=== PATIENT | female | born 1950 | race Caucasian/White ===

== ENCOUNTER 2017-02-09 09:46 | Emergency (ER) | payer MEDICARE, MEDICAID ==
[~2017-02-09] VITALS: Ht 170.2 cm; Wt 75.0 kg
[~2017-02-09 09:46] MED LIST: ACET325 PO; AMLO5TAB96 PO; CARB0.5D16 EACH EYE; CLIN1CAP6 PO; CLON.1 PO; HYDR-2768 PO; IRBE150T51 PO; LORA-474 PO; PARO40TA PO; PERC10TA27 PO; TRAZ100 PO; VITA100018 PO; XARE10TA PO
[2017-02-09 10:05] VITALS: BP 149/91; PULSE 85; RESP 14; TEMP 98; O2SAT 95
[2017-02-09] MEDS ORDERED: SODIUM CHLORIDE 0.9% FLUSH 10 ML FLUSH IV FLUSH PRN (10:30)
[2017-02-09 10:41] VITALS: BP 149/91; PULSE 85; RESP 14; TEMP 98; O2SAT 95
[2017-02-09 10:42] LABS: AUTOMATED NEUTROPHIL # 7.6 TH/MM3 (1.8-7.7); BASOPHIL # 0.1 TH/MM3 (0-0.2); BASOPHIL % 0.7 % (0.0-2.0); EOSINOPHIL # 0.1 TH/MM3 (0-0.4); EOSINOPHIL % 1.2 % (0.0-4.0); HEMO FLAGS DIFF FINAL; LYMPH % 22.5 % (9.0-44.0); LYMPHOCYTE # 2.6 TH/MM3 (1.0-4.8); MEAN CELL VOLUME 94.7 FL (80.0-100.0); MEAN CORPUSCULAR HEMOGLOBIN 32.1 PG (27.0-34.0); MEAN CORPUSCULAR HGB CONC 33.9 % (32.0-36.0); MONO % 11.1 % (0.0-8.0); NEUT % 64.5 % (16.0-70.0); PLATELET COUNT 366 TH/MM3 (150-450); RED BLOOD COUNT 4.32 MIL/MM3 (4.00-5.30); RED CELL DISTRIBUTION WIDTH 12.8 % (11.6-17.2); WHITE BLOOD COUNT 11.8 TH/MM3 (4.0-11.0)
[2017-02-09 10:48] LABS: BLOOD, URINE NEG (NEG); GLUCOSE,URINE NEG (NEG); HYALINE CAST, URINE 10 /lpf (RARE); KETONE, URINE NEG (NEG); MUCUS URINE FEW /lpf (OCC); NITRITE,URINE NEG (NEG); SQUAMOUS EPITHELIAL CELL URINE 1 /hpf (0-5); URINE COLOR YELLOW (YELLW/STRAW)
[2017-02-09 10:51] LABS: APTT (PATIENT) 23.6 SEC (24.3-30.1); PROTHROMBIN TIME - PATIENT 10.1 SEC (9.8-11.6)
[2017-02-09 10:56] LABS: COMMENT (UR) CATH-CULT NOT IND; CULTURE IF INDICATED CATH CULTURE NOT IND
[2017-02-09 11:06] LABS: ALT (GPT) 28 U/L (10-53); ANION GAP 7 MEQ/L (5-15); AST (GOT) 45 U/L (15-37); BICARBONATE 25.3 MEQ/L (21.0-32.0); BLOOD UREA NITROGEN 20 MG/DL (7-18); CHLORIDE 107 MEQ/L (98-107); GLOMERULAR FILTRATION RATE 46 ML/MIN (>89); POTASSIUM 3.8 MEQ/L (3.5-5.1); SODIUM (NA) 139 MEQ/L (136-145)
[2017-02-09 11:07] LABS: ALCOHOL LESS THAN 3 MG/DL (0-5)
[2017-02-09 11:09] LABS: ALKALINE PHOSPHATASE 98 U/L (45-117); TOTAL BILIRUBIN ADULT 0.2 MG/DL (0.2-1.0)
--- NOTE | 2017-02-09 11:16 | RADRPT ---
EXAM DATE/TIME: 02/09/2017 10:55 [facility] COMPARISON: No previous studies available for comparison. INDICATIONS : Right knee pain after falling this morning. MEDICAL HISTORY : Hypertension. Osteoporosis. SURGICAL HISTORY : Appendectomy. Splenectomy. ENCOUNTER: Initial ACUITY: 1 day PAIN SCORE: 9/10 LOCATION: Right patella. FINDINGS: 4 view of the right knee demonstrates no fracture or dislocation. Mineralization appears decreased. A joint effusion is present. There is an ossific density in the posterior knee measuring 11 mm. Tricom partmental osteophytes are present with medial joint space narrowing. No acute soft tissue abnormalit y is seen. CONCLUSION: 1. No fracture is identified. There is a joint effusion. 2. Moderate tricompartmental osteoarthritis with medial joint space narrowing. Henok Vazquez MD on February 09, 2017 at 11:12 Board Certified Radiologist. This report was verified electronically.
[2017-02-09 11:21] LABS: ACETAMINOPHEN LESS THAN 2.0 MCG/ML (10.0-30.0)
--- NOTE | 2017-02-09 11:32 | RADRPT ---
EXAM DATE/TIME: 02/09/2017 10:29 [facility] COMPARISON: No previous studies available for comparison. INDICATIONS : Altered mental status, found lethargic with slurred speech. RADIATION DOSE: 56.35 CTDIvol (mGy) MEDICAL HISTORY : Hypertension. SURGICAL HISTORY : Tonsillectomy. ENCOUNTER: Initial ACUITY: 1 day PAIN SCALE: 0/10 LOCATION: cranial TECHNIQUE: Multiple contiguous axial images were obtained of the head. Using automated exposure control and adj ustment of the mA and/or kV according to patient size, radiation dose was kept as low as reasonably a chievable to obtain optimal diagnostic quality images. DICOM format image data is available electro nically for review and comparison. FINDINGS: CEREBRUM: There is mild generalized atrophy. Ventricles are normal. There is mild periventricular white matter low attenuation. Area of low density in the right occipital lobe is present. According to prior repor t this was likely present previously. No midline shift, mass lesion, hemorrhage or acute infarction. No extra-axial fluid collections are seen. POSTERIOR FOSSA: The cerebellum and brainstem demonstrate no acute finding. The 4th ventricle is midline. The cerebe llopontine angle is unremarkable. EXTRACRANIAL: Visualized sinuses are clear. SKULL: The calvaria is intact. No evidence of skull fracture. CONCLUSION: 1. No acute intracranial abnormality is identified. 2. Chronic changes include generalized atrophy and chronic periventricular white matter changes. The area of low-density in the right occipital lobe is likely chronic and most likely represents encephal omalacia. Henok Vazquez MD on February 09, 2017 at 11:20 Board Certified Radiologist. This report was verified electronically.
--- NOTE | 2017-02-09 11:44 | PD ---
HPI Chief Complaint: Injury Time Seen by Provider: 10:34 Travel History International Travel<30 days: No Contact w/Intl Traveler<30days: No Traveled to known affect area: No History of Present Illness HPI This 67-year-old woman who presents to the emergency department after she was found on the ground. Patient states that she fell overnight when she got up out of bed and on the right knee which is painful. Denies hitting her head. Patient seems a little bit sluggish. She had multiple prescriptions for Xanax and her medications. States stasis as needed but is a little bit evasive about how often she takes it. History Past Medical History Narrative Medical Hypertension Hyperlipidemia History of polysubstance abuse Tetanus Vaccination: Unknown Influenza Vaccination: Yes Menopausal: Yes Social History Alcohol Use: No Tobacco Use: No Allergies-Medications (Allergen,Severity, Reaction): Coded Allergies: lisinopril (Unverified Allergy, Unknown, 10/17/16) UNKNOWN Reported Meds & Prescriptions Reported Meds & Active Scripts Active Reported Clindamycin Hcl (Clindamycin HCl) 300 Mg Cap 300 Mg PO TID 10 Days Ativan (Lorazepam) 1 Mg Tab 1 Mg PO Q8 PRN Percocet 10/325 (Oxycodone/Acetaminophen) Tab 1 Tab PO Q4 PRN PRN PAIN Tylenol (Acetaminophen) 325 Mg Tab 325 Mg PO Q4H Vitamin D (Cholecalciferol) 1,000 Unit Tab 1,000 Unit PO HS Xarelto (Rivaroxaban) 10 Mg Tab 10 Mg PO DAILY Trazodone Hcl (Trazodone HCl) 100 Mg Tab 100 Mg PO HS Tears Naturale (Artificial Tears) 15 Ml Soln 1 Drop EACH EYE DIRECTED PRN Hctz (Hydrochlorothiazide) 25 Mg Tab 25 Mg PO HS Catapres (Clonidine HCl) 0.1 Mg Tab 0.1 Mg PO BID Paxil (Paroxetine HCl) 40 Mg Tab 40 Mg PO DAILY Avalide 150/12.5 (HCTZ/Irbesartan) Tab 75 Mg PO DAILY Norvasc (Amlodipine Besylate) 5 Mg Tab 5 Mg PO DAILY Review of Systems Except as stated in HPI: all other systems reviewed are Neg Physical Exam Narrative GENERAL: Sleepy 67 year-old woman, no acute distress. SKIN: Focused skin assessment warm/dry. HEAD: Atraumatic. Normocephalic. EYES: Pupils equal and round. No scleral icterus. No injection or drainage. ENT: No nasal bleeding or discharge. Mucous membranes pink and moist. NECK: Trachea midline. No JVD. CARDIOVASCULAR: Regular rate and rhythm. No murmur appreciated. RESPIRATORY: No accessory muscle use. Clear to auscultation. Breath sounds equal bilaterally. GASTROINTESTINAL: Abdomen soft, non-tender, nondistended. Hepatic and splenic margins not palpable. MUSCULOSKELETAL: No obvious deformities. Right knee with a little bit of effusion. Full range of motion. Small abrasion anteriorly. No other evidence of injury. NEUROLOGICAL: Awake and alert. No obvious cranial nerve deficits. Motor grossly within normal limits. Normal speech. PSYCHIATRIC: Appropriate mood and affect; insight and judgment normal. Data Data Last Documented VS Vital Signs Date Time Temp Pulse Resp B/P (MAP) Pulse Ox O2 Delivery O2 Flow Rate FiO2 02/09/17 10:41 85 14 149/91 (110) 95 Room Air 02/09/17 10:41 98.0 Orders Orders Electrocardiogram (02/09/17 10:26) Complete Blood Count With Diff (02/09/17 10:26) Comprehensive Metabolic Panel (02/09/17 10:26) Prothrombin Time / Inr (Pt) (02/09/17 10:26) Act Partial Throm Time (Ptt) (02/09/17 10:26) Troponin I (02/09/17 10:26) Thyroid Stimulating Hormone (02/09/17 10:26) Urinalysis - C+S If Indicated (02/09/17 10:26) Ct Brain W/O Iv Contrast(Rout) (02/09/17 10:26) Blood Glucose (02/09/17 10:26) Ecg Monitoring (02/09/17 10:26) Iv Access Insert/Monitor (02/09/17 10:26) Oximetry (02/09/17 10:26) Sodium Chloride 0.9% Flush (Ns Flush) (02/09/17 10:30) Drug Screen, Random Urine (02/09/17 10:26) Alcohol (Ethanol) (02/09/17 10:26) Tylenol (Acetaminophen) (02/09/17 10:26) Salicylates (Aspirin) (02/09/17 10:26) Knee, Complete (4vws) (02/09/17 ) Labs Laboratory Tests Test 02/09/17 10:05 02/09/17 10:10 Urine Color YELLOW Urine Turbidity CLEAR Urine pH 5.0 Urine Specific [place] 1.012 Urine Protein NEG mg/dL Urine Glucose (UA) NEG mg/dL Urine Ketones NEG mg/dL Urine Occult Blood NEG Urine Nitrite NEG Urine Bilirubin NEG Urine Urobilinogen LESS THAN 2.0 MG/DL Urine Leukocyte Esterase TRACE Urine RBC 2 /hpf Urine WBC 2 /hpf Urine Squamous Epithelial Cells 1 /hpf Urine Hyaline Casts 10 /lpf Urine Mucus FEW /lpf Microscopic Urinalysis Comment CATH-CULT NOT IND White Blood Count 11.8 TH/MM3 Red Blood Count 4.32 MIL/MM3 Hemoglobin 13.9 GM/DL Hematocrit 41.0 % Mean Corpuscular Volume 94.7 FL Mean Corpuscular Hemoglobin 32.1 PG Mean Corpuscular Hemoglobin Concent 33.9 % Red Cell Distribution Width 12.8 % Platelet Count 366 TH/MM3 Mean Platelet Volume 8.9 FL Neutrophils (%) (Auto) 64.5 % Lymphocytes (%) (Auto) 22.5 % Monocytes (%) (Auto) 11.1 % Eosinophils (%) (Auto) 1.2 % Basophils (%) (Auto) 0.7 % Neutrophils # (Auto) 7.6 TH/MM3 Lymphocytes # (Auto) 2.6 TH/MM3 Monocytes # (Auto) 1.3 TH/MM3 Eosinophils # (Auto) 0.1 TH/MM3 Basophils # (Auto) 0.1 TH/MM3 CBC Comment DIFF FINAL Differential Comment Prothrombin Time 10.1 SEC Prothromb Time International Ratio 1.0 RATIO Activated Partial Thromboplast Time 23.6 SEC Blood Urea Nitrogen 20 MG/DL Creatinine 1.17 MG/DL Random Glucose 79 MG/DL Total Protein 7.8 GM/DL Albumin 3.6 GM/DL Calcium Level 9.6 MG/DL Alkaline Phosphatase 98 U/L Aspartate Amino Transf (AST/SGOT) 45 U/L Alanine Aminotransferase (ALT/SGPT) 28 U/L Total Bilirubin 0.2 MG/DL Sodium Level 139 MEQ/L Potassium Level 3.8 MEQ/L Chloride Level 107 MEQ/L Carbon Dioxide Level 25.3 MEQ/L Anion Gap 7 MEQ/L Estimat Glomerular Filtration Rate 46 ML/MIN Troponin I LESS THAN 0.02 NG/ML Thyroid Stimulating Hormone 3rd Gen 1.720 uIU/ML Salicylates Level 1.9 MG/DL Urine Opiates Screen NEG Acetaminophen Level LESS THAN 2.0 MCG/ML Urine Barbiturates Screen NEG Urine Amphetamines Screen NEG Urine Benzodiazepines Screen POS Urine Cocaine Screen NEG Urine Cannabinoids Screen NEG Ethyl Alcohol Level LESS THAN 3 MG/DL MDM Medical Decision Making Medical Screen Exam Complete: Yes Emergency Medical Condition: Yes Interpretation(s) Labs: CBC remarkable for mild leukocytosis. CMP remarkable for mildly elevated BUN/creatinine. Troponin negative. TSH normal. Coags unremarkable. Drug screens: Slow slight 1.9, positive for benzodiazepines UA unremarkable. CT head: No acute intracranial abnormality. X-ray: No fracture. Joint effusion. Osteoarthritis. Differential Diagnosis Fall, head injury, adverse effect of illicit medications, adverse effect of perception medications, other Narrative Course Medical decision-making new 67 year-old man, appears to be abusing her Xanax, fall, no evidence of severe injury from the fall. Small effusion but she is able to bear weight. Diagnosis Primary Impression: Benzodiazepine abuse Additional Impression: Fall Additional Instructions: Reduce your use of benzodiazepines to prevent unsteadiness and falls. Follow up with her primary doctor in the next 2-3 days. Med/Other Pt SpecificInfo: No Change to Meds Disposition: 01 DISCHARGE HOME Condition: Stable Vitor Macias MD Feb 09, 2017 11:43
[2017-02-09 12:03] VITALS: BP 140/82
== END 2017-02-09 13:23 | disposition home or self-care (01) ==
LOC: NEPE 09:46
DX: M25.461 Effusion, right knee (principal); F19.10 Other psychoactive substance abuse, uncomplicated; D72.829 Elevated white blood cell count, unspecified; I10 Essential (primary) hypertension; E78.5 Hyperlipidemia, unspecified; Z79.899 Other long term (current) drug therapy
CPT/HCPCS: 70450; 73564; 80053; 80307; 81001; 84443; 84484; 85025; 85610; 85730; 99285